=== PATIENT | female | born 1990 | race Asian ===

== ENCOUNTER 2019-05-03 09:44 | Outpatient (CLI) | payer BC ==
--- NOTE | 2019-05-03 10:36 | ULT ---
TRANSABDOMINAL PELVIC ULTRASOUND WITH GRAYSCALE AND COLORFLOW AND SPECTRAL DOPPLER IMAGING: HISTORY: Enlarged uterus. FINDINGS: The uterus measures 8.2 x 5.7 x 4.8 cm. The endometrium measures 1.3 cm in thickness. No uterine mass or endometrial fluid is seen. The right ovary measures 3.9 x 2.6 x 2.4 cm and the left ovary measures 3.4 x 2.7 x 2.3 cm. Flow is d emonstrated to both ovaries. No adnexal mass or free fluid in the cul-de-sac is seen. IMPRESSION: Unremarkable examination. [place]: [facility] [place]
== END 2019-05-03 09:45 | disposition home or self-care (01) ==
LOC: SCSULT 09:44
PROVIDERS: ATTEND Physician Assistant
DX: N85.2 Hypertrophy of uterus (principal)
CPT/HCPCS: 76856; 93976